=== PATIENT | male | born 2000 | race Caucasian/White ===

== ENCOUNTER 2018-11-06 13:46 | Emergency (ER) | payer OTHER ==
[2018-11-06 13:51] VITALS: RESP 18; TEMP 98.2
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
[2018-11-06 19:11] VITALS: BP 114/72; PULSE 87
== END 2018-11-06 19:10 | disposition home or self-care (01) ==
LOC: EC 13:46
DX: F32.9 Major depressive disorder, single episode, unspecified (principal)
CPT/HCPCS: 99285

== ENCOUNTER 2021-07-02 21:50 | Emergency (ER) | payer OTHER ==
--- NOTE | 2021-07-02 23:23 | ED ---
Abdominal Pain HPI <Elizabeth Hartman - Last Filed: 07/03/21 02:40> - General Source: RN notes reviewed, old records reviewed - History of Present Illness MD Complaint: abdominal pain, other (Nausea and vomiting) -: days(s) Location: periumbilical, LUQ, RUQ, L flank, R flank Radiation: back Migration to: LUQ, RUQ Severity: moderate Severity scale (1-10): 4 Quality: cramping, stabbing Consistency: intermittent Improves With: nothing Worsens With: vomiting Associated Symptoms: nausea, vomiting Treatments Prior to Arrival: other (none) <Tony Taylor - Last Filed: 07/03/21 06:00> <Leobardo Gilbert - Last Filed: 07/03/21 09:03> - General Stated Complaint: ABDOMINAL PAIN Time Seen by Provider: 07/02/21 23:19 - History of Present Illness Initial Comments: Seen for ATP purposes: 20 year-old male patient presents to the emergency d [facility] for evaluation of abdominal pain. States it is in the left lateral abdomen. Symptoms started about 5 days ago. States he has been vomiting blood. States he was initially having coffee grounds then turned to bright red last night. No vomiting today. Denies any fever or chills. States it hurts to move. Denies difficulty with urination. Denies diarrhea. Denies hematochezia or melena. (Elizabeth Hartman) This is a 20-year-old male to emergency department for evaluation abdominal pain. She has midepigastric upper abdominal pain goes left-sided goes tobacco a right side. No fevers. No travel history, no sick contacts possible nausea history of vomiting blood which she thinks was blood last night. No vomiting today. Symptoms are worsening. Patient states he feels very dehydrated. (Tony Taylor) - Related Data Home Medications Medication Instructions Recorded Confirmed Multivitamin,Therapeutic [Thera] 1 tab PO DAILY 11/06/18 11/06/18 Previous Rx's Medication Instructions Recorded Ondansetron Odt [Zofran Odt] 4 mg PO Q8HR PRN #10 tab 07/03/21 Allergies Allergy/AdvReac Type Severity Reaction Status Date / Time No Known Allergies Allergy Verified 07/02/21 23:26 Review of Systems ROS Other: All systems not noted in ROS Statement are negative. <Elizabeth Hartman - Last Filed: 07/03/21 02:40> ROS Other: All systems not noted in ROS Statement are negative. <Tony Taylor - Last Filed: 07/03/21 06:00> ROS Other: All systems not noted in ROS Statement are negative. <Leobardo Gilbert - Last Filed: 07/03/21 09:03> ROS Statement: Those systems with pertinent positive or pertinent negative responses have been documented in the HPI. Past Medical History Past Medical History: Asthma History of Any Multi-Drug Resistant Organisms: None Reported Past Surgical History: No Surgical Hx Reported Past Psychological History: Depression Past Alcohol Use History: None Reported Past Drug Use History: None Reported <Elizabeth Hartman - Last Filed: 07/03/21 02:40> General Exam General appearance: alert, in no apparent distress Head exam: Present: atraumatic, normocephalic, normal inspection Eye exam: Present: normal appearance, PERRL, EOMI. Absent: scleral icterus, con junctival injection, periorbital swelling ENT exam: Present: normal exam, mucous membranes moist Neck exam: Present: normal inspection. Absent: tenderness, meningismus, lymphadenopathy Respiratory exam: Present: normal lung sounds bilaterally. Absent: respiratory distress, wheezes, rales, rhonchi, stridor Cardiovascular Exam: Present: regular rate, normal rhythm, normal heart sounds. Absent: systolic murmur, diastolic murmur, rubs, gallop, clicks GI/Abdominal exam: Present: soft, normal bowel sounds. Absent: distended, tenderness, guarding, rebound, rigid Extremities exam: Present: normal inspection, full ROM, normal capillary refill. Absent: tenderness, pedal edema, joint swelling, calf tenderness Back exam: Present: normal inspection Neurological exam: Present: alert, oriented X3, CN II-XII intact Psychiatric exam: Present: normal affect, normal mood Skin exam: Present: warm, dry, intact, normal color. Absent: rash <Tony Taylor - Last Filed: 07/03/21 06:00> Course <Tony Taylor - Last Filed: 07/03/21 06:00> Vital Signs 11/28/21 11/29/21 23:21 06:17 Temperature 98.3 F Pulse Rate 119 H 71 Respiratory 18 20 Rate Blood Pressure 123/86 127/76 O2 Sat by Pulse 98 99 Oximetry - Reevaluation(s) Reevaluation #1: 07/03/21 06:01 Medical record is reviewed (Tony Taylor) Reevaluation #2: 07/03/21 06:01 Patient symptoms are improving (Tony Taylor) Medical Decision Making - Lab Data Result diagrams: 07/03/21 00:20 07/03/21 00:20 <Elizabeth Hartman - Last Filed: 07/03/21 02:40> - Lab Data Result diagrams: 07/03/21 03:32 07/03/21 00:20 <Tony Taylor - Last Filed: 07/03/21 06:00> - Lab Data Result diagrams: 07/03/21 03:32 07/03/21 00:20 - Radiology Data Radiology results: report reviewed (Ultrasound gallbladder shows hepatomegaly. CT abdomen and pelvis shows no acute changes. Fatty infiltrated liver.) <Leobardo Gilbert - Last Filed: 07/03/21 09:03> - Medical Decision Making Patient endorsed to me for probable discharge following ultrasound. Patient reevaluated by myself, Dr. Gilbert. Patient resting comfortably in bed and feeling better. Abdomen soft and nontender. Patient states he did vomit one to 3 times over the past few days. Patient questioned if he had some blood in the last episode. Patient did have repeat blood work or stable hemoglobin. Patient updated on results and need for follow-up. Patient is comfortable with discharge at this time. Patient states he is on prescription antacid for his stomach. (Leobardo Gilbert) - Lab Data Lab Results 07/03/21 07/03/21 07/03/21 Range/Units 00:20 00:20 00:20 WBC 12.9 H (3.8-10.6) k/uL RBC 5.28 (4.30-5.90) m/uL Hgb 14.7 (13.0-17.5) gm/dL Hct 44.5 (39.0-53.0) % MCV 84.2 (80.0-100.0) fL MCH 27.9 (25.0-35.0) pg MCHC 33.1 (31.0-37.0) g/dL RDW 14.6 (11.5-15.5) % Plt Count 405 (150-450) k/uL MPV 7.0 Neutrophils % 68 % Lymphocytes % 21 % Monocytes % 6 % Eosinophils % 3 % Basophils % 0 % Neutrophils # 8.8 H (1.3-7.7) k/uL Lymphocytes # 2.7 (1.0-4.8) k/uL Monocytes # 0.8 (0-1.0) k/uL Eosinophils # 0.4 (0-0.7) k/uL Basophils # 0.1 (0-0.2) k/uL Sodium 136 L (137-145) mmol/L Potassium 4.2 (3.5-5.1) mmol/L Chloride 102 (98-107) mmol/L Carbon Dioxide 22 (22-30) mmol/L Anion Gap 12 mmol/L BUN 10 (9-20) mg/dL Creatinine 0.88 (0.66-1.25) mg/dL Est GFR (CKD-EPI)AfAm >90 (>60 ml/min/1.73 sqM) Est GFR (CKD-EPI)NonAf >90 (>60 ml/min/1.73 sqM) Glucose 115 H (74-99) mg/dL Plasma Lactic Acid Neto 1.5 (0.7-2.0) mmol/L Calcium 10.1 (8.4-10.2) mg/dL Magnesium (1.6-2.3) mg/dL Total Bilirubin 0.4 (0.2-1.3) mg/dL AST 42 (17-59) U/L ALT 61 H (4-49) U/L Alkaline Phosphatase 162 H (38-126) U/L Total Protein 8.5 H (6.3-8.2) g/dL Albumin 4.4 (3.5-5.0) g/dL Lipase 97 (23-300) U/L Urine Color Urine Appearance (Clear) Urine pH (5.0-8.0) Ur Specific Atwood (1.001-1.035) Urine Protein (Negative) Urine Glucose (UA) (Negative) Urine Ketones (Negative) Urine Blood (Negative) Urine Nitrite (Negative) Urine Bilirubin (Negative) Urine Urobilinogen (<2.0) mg/dL Ur Leukocyte Esterase (Negative) Urine RBC (0-5) /hpf Urine WBC (0-5) /hpf Ur Squamous Epith Cells (0-4) /hpf Urine Bacteria (None) /hpf Hyaline Casts (0-2) /lpf Urine Mucus (None) /hpf Serum Alcohol mg/dL Coronavirus (PCR) (Not Detectd) 07/03/21 07/03/21 07/03/21 Range/Units 01:44 03:32 03:32 WBC 12.7 H (3.8-10.6) k/uL RBC 5.09 (4.30-5.90) m/uL Hgb 14.6 (13.0-17.5) gm/dL Hct 42.8 (39.0-53.0) % MCV 84.2 (80.0-100.0) fL MCH 28.6 (25.0-35.0) pg MCHC 34.0 (31.0-37.0) g/dL RDW 14.6 (11.5-15.5) % Plt Count 431 (150-450) k/uL MPV 6.9 Neutrophils % 67 % Lymphocytes % 21 % Monocytes % 7 % Eosinophils % 3 % Basophils % 0 % Neutrophils # 8.4 H (1.3-7.7) k/uL Lymphocytes # 2.7 (1.0-4.8) k/uL Monocytes # 0.8 (0-1.0) k/uL Eosinophils # 0.4 (0-0.7) k/uL Basophils # 0.0 (0-0.2) k/uL Sodium (137-145) mmol/L Potassium (3.5-5.1) mmol/L Chloride (98-107) mmol/L Carbon Dioxide (22-30) mmol/L Anion Gap mmol/L BUN (9-20) mg/dL Creatinine (0.66-1.25) mg/dL Est GFR (CKD-EPI)AfAm (>60 ml/min/1.73 sqM) Est GFR (CKD-EPI)NonAf (>60 ml/min/1.73 sqM) Glucose (74-99) mg/dL Plasma Lactic Acid Neto (0.7-2.0) mmol/L Calcium (8.4-10.2) mg/dL Magnesium 2.1 (1.6-2.3) mg/dL Total Bilirubin (0.2-1.3) mg/dL AST (17-59) U/L ALT (4-49) U/L Alkaline Phosphatase (38-126) U/L Total Protein (6.3-8.2) g/dL Albumin (3.5-5.0) g/dL Lipase (23-300) U/L Urine Color Yellow Urine Appearance Cloudy (Clear) Urine pH 5.5 (5.0-8.0) Ur Specific Atwood 1.028 (1.001-1.035) Urine Protein Trace H (Negative) Urine Glucose (UA) Negative (Negative) Urine Ketones Negative (Negative) Urine Blood Small H (Negative) Urine Nitrite Negative (Negative) Urine Bilirubin Negative (Negative) Urine Urobilinogen <2.0 (<2.0) mg/dL Ur Leukocyte Esterase Negative (Negative) Urine RBC 21 H (0-5) /hpf Urine WBC 7 H (0-5) /hpf Ur Squamous Epith Cells 1 (0-4) /hpf Urine Bacteria Rare H (None) /hpf Hyaline Casts 13 H (0-2) /lpf Urine Mucus Many H (None) /hpf Serum Alcohol <10 mg/dL Coronavirus (PCR) (Not Detectd) 07/03/21 Range/Units 03:32 WBC (3.8-10.6) k/uL RBC (4.30-5.90) m/uL Hgb (13.0-17.5) gm/dL Hct (39.0-53.0) % MCV (80.0-100.0) fL MCH (25.0-35.0) pg MCHC (31.0-37.0) g/dL RDW (11.5-15.5) % Plt Count (150-450) k/uL MPV Neutrophils % % Lymphocytes % % Monocytes % % Eosinophils % % Basophils % % Neutrophils # (1.3-7.7) k/uL Lymphocytes # (1.0-4.8) k/uL Monocytes # (0-1.0) k/uL Eosinophils # (0-0.7) k/uL Basophils # (0-0.2) k/uL Sodium (137-145) mmol/L Potassium (3.5-5.1) mmol/L Chloride (98-107) mmol/L Carbon Dioxide (22-30) mmol/L Anion Gap mmol/L BUN (9-20) mg/dL Creatinine (0.66-1.25) mg/dL Est GFR (CKD-EPI)AfAm (>60 ml/min/1.73 sqM) Est GFR (CKD-EPI)NonAf (>60 ml/min/1.73 sqM) Glucose (74-99) mg/dL Plasma Lactic Acid Neto (0.7-2.0) mmol/L Calcium (8.4-10.2) mg/dL Magnesium (1.6-2.3) mg/dL Total Bilirubin (0.2-1.3) mg/dL AST (17-59) U/L ALT (4-49) U/L Alkaline Phosphatase (38-126) U/L Total Protein (6.3-8.2) g/dL Albumin (3.5-5.0) g/dL Lipase (23-300) U/L Urine Color Urine Appearance (Clear) Urine pH (5.0-8.0) Ur Specific Atwood (1.001-1.035) Urine Protein (Negative) Urine Glucose (UA) (Negative) Urine Ketones (Negative) Urine Blood (Negative) Urine Nitrite (Negative) Urine Bilirubin (Negative) Urine Urobilinogen (<2.0) mg/dL Ur Leukocyte Esterase (Negative) Urine RBC (0-5) /hpf Urine WBC (0-5) /hpf Ur Squamous Epith Cells (0-4) /hpf Urine Bacteria (None) /hpf Hyaline Casts (0-2) /lpf Urine Mucus (None) /hpf Serum Alcohol mg/dL Coronavirus (PCR) Not Detected (Not Detectd) Disposition <Elizabeth Hartman - Last Filed: 07/03/21 02:40> <Tony Taylor - Last Filed: 07/03/21 06:00> Is patient prescribed a controlled substance at d/c from ED?: No Time of Disposition: 09:02 <Leobardo Gilbert - Last Filed: 07/03/21 09:03> Clinical Impression: Abdominal pain, Vomiting Disposition: HOME SELF-CARE Condition: Stable Instructions (If sedation given, give patient instructions): Abdominal Pain (ED) Additional Instructions: Please follow-up with your primary care physician in the next day or 2 for recheck. Return for increased pain, fevers, vomiting blood, increased vomiting, worsening symptoms or any other concerns. Prescription for nausea medication has been sent to your pharmacy. Prescriptions: Ondansetron Odt [Zofran Odt] 4 mg PO Q8HR PRN #10 tab PRN Reason: Nausea Referrals: Tadeo Luu MD [STAFF PHYSICIAN] - 1-2 days
--- NOTE | 2021-07-03 00:02 | CT ---
EXAMINATION TYPE: CT abdomen pelvis wo con DATE OF EXAM: 07/02/2021 COMPARISON: None HISTORY: LUQ PAIN CT DLP: 2060 mGycm Automated exposure control for dose reduction was used. Images obtained from the diaphragm to the floor the pelvis with no contrast. Lung bases are clear of infiltrate. There is no pleural effusion. Heart size is normal. There is no p ericardial effusion. There is fatty infiltration of the liver. The bile ducts are not dilated. Gallbladder is contracted. Spleen is intact. Stomach is intact. There is no pancreatic mass. There is no adrenal mass. Kidneys show satisfactory contrast opacification. There is no hydronephrosi s. Ureters are not dilated. There is no retroperitoneal adenopathy. There is no inguinal hernia. Ther e is no free fluid in the pelvis. There is no evidence of a pelvic mass. Lumbar vertebra have normal alignment. Posterior elements are intact. There is no compression fracture. Appendix not well seen. N o sign of thickened appendix. There is no mesenteric edema. There is no ascites or free air. There is no bowel obstruction. IMPRESSION: There is some fatty infiltration of the liver. No sign of acute abdomen and pelvis.
[2021-07-03 00:53] LABS: ALT 61 U/L (4-49); AST 42 U/L (17-59); African American GFR (CKD) >90 (>60 ml/min/1.73 sqM); Albumin 4.4 g/dL (3.5-5.0); Alkaline Phosphatase 162 U/L (38-126); Anion Gap 12 mmol/L; Blood Urea Nitrogen 10 mg/dL (9-20); Calcium 10.1 mg/dL (8.4-10.2); Carbon Dioxide 22 mmol/L (22-30); Chloride 102 mmol/L (98-107); Glucose 115 mg/dL (74-99); Lipase 97 U/L (23-300); Non-African American GFR(CKD) >90 (>60 ml/min/1.73 sqM); Potassium 4.2 mmol/L (3.5-5.1); Sodium 136 mmol/L (137-145); Total Bilirubin 0.4 mg/dL (0.2-1.3); Total Protein 8.5 g/dL (6.3-8.2)
[2021-07-03 01:03] LABS: Basophils # (A) 0.1 k/uL (0-0.2); Basophils % (A) 0 %; Eosinophils # (A) 0.4 k/uL (0-0.7); Eosinophils % (A) 3 %; HCT 44.5 % (39.0-53.0); HGB 14.7 gm/dL (13.0-17.5); Lymphocytes # (A) 2.7 k/uL (1.0-4.8); Lymphocytes % (A) 21 %; MCH 27.9 pg (25.0-35.0); MCHC 33.1 g/dL (31.0-37.0); MCV 84.2 fL (80.0-100.0); Monocytes # (A) 0.8 k/uL (0-1.0); Monocytes % (A) 6 %; Neutrophils # (A) 8.8 k/uL (1.3-7.7); Neutrophils % (A) 68 %; Platelet Count 405 k/uL (150-450); RBC 5.28 m/uL (4.30-5.90); RDW 14.6 % (11.5-15.5); WBC 12.9 k/uL (3.8-10.6)
[2021-07-03 02:14] LABS: Appearance,Urine Cloudy (Clear); Bacteria,Urine Rare /hpf; Bilirubin,Urine Negative (Negative); Blood,Urine Small (Negative); Color,Urine Yellow; Glucose,Urine (UA) Negative (Negative); Hyaline Casts,Urine 13 /lpf (0-2); Ketones,Urine Negative (Negative); Leukocyte Esterase,Urine Negative (Negative); Mucus,Urine Many /hpf; Nitrite,Urine Negative (Negative); PH, Urine 5.5 (5.0-8.0); Protein,Urine Trace (Negative); RBC,Urine 21 /hpf (0-5); Specific Gravity,Urine 1.028 (1.001-1.035); Squamous Epithelial Cell,Urine 1 /hpf (0-4); Urobilinogen,Urine <2.0 mg/dL (<2.0); WBC,Urine 7 /hpf (0-5)
[2021-07-03] MEDS ORDERED: ONDANSETRON 4 MG/2 ML VIAL IVP STA (03:14)
[2021-07-03] MEDS ORDERED: SODIUM CHLORIDE 0.9% 1,000 ML IV STA ×2 (03:14)
[2021-07-03] MEDS ORDERED: KETOROLAC 30 MG/ML 1 ML VIAL IVP STA (03:14)
[2021-07-03] MEDS ORDERED: MORPHINE SULFATE 4 MG/ML SYRINGE IV STA (03:14)
[2021-07-03] MEDS ORDERED: SODIUM CHLORIDE 0.9% 500 ML 500 ML IV STA (03:14)
[2021-07-03 04:04] LABS: Basophils % (A) 0 %; Eosinophils # (A) 0.4 k/uL (0-0.7); Eosinophils % (A) 3 %; HCT 42.8 % (39.0-53.0); HGB 14.6 gm/dL (13.0-17.5); Lymphocytes # (A) 2.7 k/uL (1.0-4.8); Lymphocytes % (A) 21 %; MCH 28.6 pg (25.0-35.0); MCV 84.2 fL (80.0-100.0); Mean Platelet Volume 6.9; Monocytes # (A) 0.8 k/uL (0-1.0); Monocytes % (A) 7 %; Neutrophils # (A) 8.4 k/uL (1.3-7.7); Neutrophils % (A) 67 %; Platelet Count 431 k/uL (150-450); RBC 5.09 m/uL (4.30-5.90); RDW 14.6 % (11.5-15.5); WBC 12.7 k/uL (3.8-10.6)
[2021-07-03 04:19] LABS: Alcohol <10 mg/dL; Magnesium 2.1 mg/dL (1.6-2.3)
--- NOTE | 2021-07-03 08:35 | US ---
EXAMINATION TYPE: US gallbladder DATE OF EXAM: 07/03/2021 COMPARISON: NONE CLINICAL HISTORY: pain. Pain with nausea and vomitting EXAM MEASUREMENTS: Liver Length: 18.0 cm Gallbladder Wall: 0.2 cm CBD: 0.4 cm Right Kidney: 12.5 x 6.8 x 4.6 cm Pancreas: Obscured by bowel gas Liver: Increased attenuation, decreased visualization of vessels suggestive of fatty infiltrate Gallbladder: No stones seen Evidence for sonographic Vaughan's sign: No CBD: wnl Right Kidney: No hydronephrosis or masses seen Limited exam due to patient body habitus IMPRESSION: 1. Hepatomegaly
[2021-07-03 09:25] VITALS: BP 134/79; PULSE 84; RESP 16; TEMP 98.4
== END 2021-07-03 09:21 | disposition home or self-care (01) ==
LOC: EC 21:50
DX: R10.33 Periumbilical pain (principal); R10.11 Right upper quadrant pain; R10.12 Left upper quadrant pain; R11.2 Nausea with vomiting, unspecified; J45.909 Unspecified asthma, uncomplicated; Z20.822 Contact with and (suspected) exposure to COVID-19
CPT/HCPCS: 36415; 80053; 83605; 83690; 83735; 85025; 81001; 87635; 76705; 74176; 99285; 96374; 96375; 96361; G0480; J2270; J2405; J1885; 80320

== ENCOUNTER 2021-10-30 18:26 | Emergency (ER) | payer OTHER ==
--- NOTE | 2021-10-30 20:03 | ED ---
Psych HPI - General Source: patient, EMS Mode of arrival: EMS <Adin Mcdermott - Last Filed: 10/30/21 20:00> <Tony Taylor - Last Filed: 10/31/21 00:08> - General Chief Complaint: Psychiatric Symptoms Stated Complaint: EPS Eval Time Seen by Provider: 10/30/21 18:34 - History of Present Illness Initial Comments: This 20-year-old male presents with the complaint of some depression. This apparently has been worse recently. He states that he has a long standing history of depression and takes medications for this. He apparently cut his left forearm today with multiple superficial abrasions present. He also relates a history of schizoaffective disorder and posttraumatic stress disorder. He does state that he has auditory and visual hallucinations on a regular basis, daily. He denies any current medical issues. He denies any drug use. No other complaints or modifying factors. (Adin Mcdermott) - Related Data Home Medications Medication Instructions Recorded Confirmed Sertraline [Zoloft] 50 mg PO HS 10/30/21 10/30/21 Sulfamethoxazole/Trimethoprim 1 tab PO BID 10/30/21 10/30/21 [Bactrim DS 800-160 mg] Allergies Allergy/AdvReac Type Severity Reaction Status Date / Time No Known Allergies Allergy Verified 10/30/21 21:27 Review of Systems ROS Other: All systems not noted in ROS Statement are negative. <Adin Mcdermott - Last Filed: 10/30/21 20:00> ROS Other: All systems not noted in ROS Statement are negative. <Tony Taylor - Last Filed: 10/31/21 00:08> ROS Statement: Those systems with pertinent positive or pertinent negative responses have been documented in the HPI. Past Medical History Past Medical History: Asthma History of Any Multi-Drug Resistant Organisms: None Reported Past Surgical History: No Surgical Hx Reported Past Psychological History: Depression, PTSD, Schizoaffective Disorder Smoking Status: Never smoker Past Alcohol Use History: Rare Past Drug Use History: None Reported <Adin Mcdermott - Last Filed: 10/30/21 20:00> General Exam <Adin Mcdermott - Last Filed: 10/30/21 20:00> - General Exam Comments Initial Comments: GENERAL: The patient is well nourished and well hydrated. VITAL SIGNS: Heart rate, blood pressure, respiratory rate reviewed as recorded in nurse's notes. EYES: Pupils are round and reactive. Extraocular movements are intact. No conjunctival / lid redness or swelling. ENT: No external evidence of injury, swelling, or ecchymosis. Airway is patent. Throat is clear. NECK: Nontender. No swelling or evidence of injury. No subcutaneous emphysema. Trachea is midline. No thyroid mass. HEART: Regular rate and rhythm. Good peripheral pulses. LUNGS/CHEST: Breath sounds clear and equal bilaterally. No rales, rhonchi, or wheezes. No ecchymosis, subcutaneous emphysema, or tenderness. ABDOMEN: Abdomen soft without tenderness. No palpable masses or organomegaly. No peritoneal signs. No abdominal wall swelling or ecchymosis. EXTREMITIES: No extremity tenderness. Normal muscle tone and function. No thoracolumbar tenderness. NEUROLOGIC: Sensation is grossly intact. Cranial nerve exam reveals face is symmetrical, tongue is midline, speech is clear. SKIN: Multiple superficial abrasions noted to the left forearm. No induration or masses noted. PSYCHIATRIC: Alert and oriented. Appropriate behavior and judgment. No overt psychosis or significant depression noted. (Adin Mcdermott) Course <Tony Taylor - Last Filed: 10/31/21 00:08> Vital Signs 10/30/21 18:30 Temperature 98.7 F Pulse Rate 107 H Respiratory 18 Rate Blood Pressure 143/90 O2 Sat by Pulse 96 Oximetry - Reevaluation(s) Reevaluation #1: 10/31/21 00:08 Medical records reviewed 10/31/21 00:08 Medical clear for psychiatric evaluation (Tony Taylor) Medical Decision Making <Adin Mcdermott - Last Filed: 10/30/21 20:00> <Tony Taylor - Last Filed: 10/31/21 00:08> - Medical Decision Making The patient was seen and examined. His abrasions on his left forearm appear to be very minimal. The breath alcohol test is completed. It is felt as though the patient is stable for further psychiatric evaluation. He is medically cleared. Consult is placed for psychiatric evaluation. (Adin Mcdermott) 21 male to the emergency department for evaluation. Patient here for psychiatric evaluation today, patient deemed stable for discharge home (Tony Taylor) Disposition <Adin Mcdermott - Last Filed: 10/30/21 20:00> Is patient prescribed a controlled substance at d/c from ED?: No <Tony Taylor - Last Filed: 10/31/21 00:08> Clinical Impression: Schizoaffective disorder, Major depression, History of posttraumatic stress disorder (PTSD), Self-mutilation, Abrasion forearm Disposition: HOME SELF-CARE Condition: Fair Instructions (If sedation given, give patient instructions): Depression (ED) Referrals: Juanito Brady Jr, DO [Primary Care Provider] - 1-2 days
[2021-10-31 00:10] VITALS: BP 134/84; PULSE 79; RESP 24; TEMP 98
[2021-10-31 00:19] LABS: Amphetamine Screen,Urine Not Detected (NotDetected); Barbiturate Screen,Urine Not Detected (NotDetected); Benzodiazepines Screen,Urine Detected (NotDetected); Cocaine Screen,Urine Not Detected (NotDetected); Methadone Screen, Urine Not Detected (NotDetected); Opiate Screen,Urine Not Detected (NotDetected); Oxycodone Screen, Urine Not Detected (NotDetected); Phencyclidine Screen,Urine Not Detected (NotDetected); Tricyclic Antidepressant,Urine Not Detected (NotDetected); Urn Cannabinoid Scrn Not Detected (NotDetected)
== END 2021-10-31 00:12 | disposition home or self-care (01) ==
LOC: EC 18:26
DX: F25.9 Schizoaffective disorder, unspecified (principal); F32.9 Major depressive disorder, single episode, unspecified; F43.10 Post-traumatic stress disorder, unspecified; J45.909 Unspecified asthma, uncomplicated
CPT/HCPCS: 80306; 82075; 99285

== ENCOUNTER 2021-11-23 17:17 | Inpatient (IN) | payer MEDICAID, OTHER ==
[2021-11-23 17:46] VITALS: RESP 16
--- NOTE | 2021-11-23 19:27 | ED ---
Psych HPI - General Chief Complaint: Psychiatric Symptoms Stated Complaint: Mental health eval Time Seen by Provider: 11/23/21 18:30 Source: patient Mode of arrival: ambulatory - History of Present Illness Initial Comments: 21-year-old male history depression who presents with complaints of feeling depressed more than usual for past 3 days with suicidal thoughts and ideation bu t no particular plan. He states he's having difficulty remembering things. No trauma no fevers chills nausea vomiting sweats he has no complaints at this time he denies alcohol or drugs. MD Complaint: feels depressed - Related Data Home Medications Medication Instructions Recorded Confirmed Omeprazole 20 mg PO DAILY 11/23/21 11/23/21 QUEtiapine [SEROquel] 50 mg PO HS 11/23/21 11/23/21 Allergies Allergy/AdvReac Type Severity Reaction Status Date / Time No Known Allergies Allergy Verified 11/23/21 19:36 Review of Systems ROS Statement: Those systems with pertinent positive or pertinent negative responses have been documented in the HPI. ROS Other: All systems not noted in ROS Statement are negative. Past Medical History Past Medical History: Asthma History of Any Multi-Drug Resistant Organisms: None Reported Past Surgical History: No Surgical Hx Reported Past Psychological History: Depression, PTSD, Schizoaffective Disorder Smoking Status: Never smoker Past Alcohol Use History: Rare Past Drug Use History: None Reported General Exam - General Exam Comments Initial Comments: This is a well-developed well-nourished awake alert oriented 3 male Limitations: no limitations General appearance: alert, in no apparent distress Head exam: Present: atraumatic, normocephalic, normal inspection Eye exam: Present: normal appearance, PERRL, EOMI. Absent: scleral icterus, conjunctival injection, periorbital swelling ENT exam: Present: normal exam, mucous membranes moist Neck exam: Present: normal inspection. Absent: tenderness, meningismus, lymphadenopathy Respiratory exam: Present: normal lung sounds bilaterally. Absent: respiratory distress, wheezes, rales, rhonchi, stridor Cardiovascular Exam: Present: regular rate, normal rhythm, normal heart sounds. Absent: systolic murmur, diastolic murmur, rubs, gallop, clicks GI/Abdominal exam: Present: soft, normal bowel sounds. Absent: distended, tenderness, guarding, rebound, rigid Extremities exam: Present: normal inspection, full ROM, normal capillary refill. Absent: tenderness, pedal edema, joint swelling, calf tenderness Back exam: Present: normal inspection Neurological exam: Present: alert, oriented X3, CN II-XII intact Psychiatric exam: Present: depressed, flat affect, suicidal ideation Skin exam: Present: warm, dry, intact, normal color. Absent: rash Course Vital Signs 11/23/21 17:41 Temperature 98.7 F Pulse Rate 66 Respiratory 16 Rate Blood Pressure 129/81 O2 Sat by Pulse 98 Oximetry Medical Decision Making - Medical Decision Making The patient was evaluated by the psychiatric service labs and CAT scan were ordered all appear to be within reasonable normal limits. Patient be admitted for inpatient evaluation and treatment. - Lab Data Result diagrams: 11/23/21 20:39 11/23/21 20:39 Lab Results 11/23/21 11/23/21 11/23/21 Range/Units 18:39 20:39 20:39 WBC 10.2 (3.8-10.6) k/uL RBC 5.35 (4.30-5.90) m/uL Hgb 15.3 (13.0-17.5) gm/dL Hct 46.5 (39.0-53.0) % MCV 87.0 (80.0-100.0) fL MCH 28.6 (25.0-35.0) pg MCHC 32.9 (31.0-37.0) g/dL RDW 15.0 (11.5-15.5) % Plt Count 475 H (150-450) k/uL MPV 7.0 Neutrophils % 64 % Lymphocytes % 27 % Monocytes % 4 % Eosinophils % 2 % Basophils % 1 % Neutrophils # 6.6 (1.3-7.7) k/uL Lymphocytes # 2.8 (1.0-4.8) k/uL Monocytes # 0.4 (0-1.0) k/uL Eosinophils # 0.2 (0-0.7) k/uL Basophils # 0.1 (0-0.2) k/uL Sodium 139 (137-145) mmol/L Potassium 4.4 (3.5-5.1) mmol/L Chloride 104 (98-107) mmol/L Carbon Dioxide 25 (22-30) mmol/L Anion Gap 10 mmol/L BUN 9 (9-20) mg/dL Creatinine 0.71 (0.66-1.25) mg/dL Est GFR (CKD-EPI)AfAm >90 (>60 ml/min/1.73 sqM) Est GFR (CKD-EPI)NonAf >90 (>60 ml/min/1.73 sqM) Glucose 90 (74-99) mg/dL Calcium 9.7 (8.4-10.2) mg/dL Total Bilirubin 0.6 (0.2-1.3) mg/dL AST 24 (17-59) U/L ALT 35 (4-49) U/L Alkaline Phosphatase 125 (38-126) U/L Total Protein 8.2 (6.3-8.2) g/dL Albumin 4.3 (3.5-5.0) g/dL Urine Color Yellow Urine Appearance Clear (Clear) Urine pH 6.0 (5.0-8.0) Ur Specific Leonidas 1.026 (1.001-1.035) Urine Protein Trace H (Negative) Urine Glucose (UA) Negative (Negative) Urine Ketones Negative (Negative) Urine Blood Negative (Negative) Urine Nitrite Negative (Negative) Urine Bilirubin Negative (Negative) Urine Urobilinogen 2.0 (<2.0) mg/dL Ur Leukocyte Esterase Negative (Negative) Urine Opiates Screen Not Detected (NotDetected) Ur Oxycodone Screen Not Detected (NotDetected) Urine Methadone Screen Not Detected (NotDetected) Ur Propoxyphene Screen Not Detected (NotDetected) Ur Barbiturates Screen Not Detected (NotDetected) U Tricyclic Antidepress Detected H (NotDetected) Ur Phencyclidine Scrn Not Detected (NotDetected) Ur Amphetamines Screen Not Detected (NotDetected) U Methamphetamines Scrn Not Detected (NotDetected) U Benzodiazepines Scrn Not Detected (NotDetected) Urine Cocaine Screen Not Detected (NotDetected) U Marijuana (THC) Screen Not Detected (NotDetected) Coronavirus (PCR) (Not Detectd) 11/23/21 Range/Units 20:39 WBC (3.8-10.6) k/uL RBC (4.30-5.90) m/uL Hgb (13.0-17.5) gm/dL Hct (39.0-53.0) % MCV (80.0-100.0) fL MCH (25.0-35.0) pg MCHC (31.0-37.0) g/dL RDW (11.5-15.5) % Plt Count (150-450) k/uL MPV Neutrophils % % Lymphocytes % % Monocytes % % Eosinophils % % Basophils % % Neutrophils # (1.3-7.7) k/uL Lymphocytes # (1.0-4.8) k/uL Monocytes # (0-1.0) k/uL Eosinophils # (0-0.7) k/uL Basophils # (0-0.2) k/uL Sodium (137-145) mmol/L Potassium (3.5-5.1) mmol/L Chloride (98-107) mmol/L Carbon Dioxide (22-30) mmol/L Anion Gap mmol/L BUN (9-20) mg/dL Creatinine (0.66-1.25) mg/dL Est GFR (CKD-EPI)AfAm (>60 ml/min/1.73 sqM) Est GFR (CKD-EPI)NonAf (>60 ml/min/1.73 sqM) Glucose (74-99) mg/dL Calcium (8.4-10.2) mg/dL Total Bilirubin (0.2-1.3) mg/dL AST (17-59) U/L ALT (4-49) U/L Alkaline Phosphatase (38-126) U/L Total Protein (6.3-8.2) g/dL Albumin (3.5-5.0) g/dL Urine Color Urine Appearance (Clear) Urine pH (5.0-8.0) Ur Specific Leonidas (1.001-1.035) Urine Protein (Negative) Urine Glucose (UA) (Negative) Urine Ketones (Negative) Urine Blood (Negative) Urine Nitrite (Negative) Urine Bilirubin (Negative) Urine Urobilinogen (<2.0) mg/dL Ur Leukocyte Esterase (Negative) Urine Opiates Screen (NotDetected) Ur Oxycodone Screen (NotDetected) Urine Methadone Screen (NotDetected) Ur Propoxyphene Screen (NotDetected) Ur Barbiturates Screen (NotDetected) U Tricyclic Antidepress (NotDetected) Ur Phencyclidine Scrn (NotDetected) Ur Amphetamines Screen (NotDetected) U Methamphetamines Scrn (NotDetected) U Benzodiazepines Scrn (NotDetected) Urine Cocaine Screen (NotDetected) U Marijuana (THC) Screen (NotDetected) Coronavirus (PCR) Not Detected (Not Detectd) - Radiology Data Radiology results: report reviewed (CT negative for acute processes.), image reviewed Disposition Clinical Impression: Depression, Suicidal ideation Disposition: TRANSFER TO PSYCH HOSP/UNIT Condition: Stable Referrals: Juanito Brady Jr, DO [Primary Care Provider] - 1-2 days Decision Date: 11/23/21 Decision Time: 21:46
[2021-11-23 19:48] LABS: Appearance,Urine Clear (Clear); Bilirubin,Urine Negative (Negative); Blood,Urine Negative (Negative); Color,Urine Yellow; Glucose,Urine (UA) Negative (Negative); Ketones,Urine Negative (Negative); Leukocyte Esterase,Urine Negative (Negative); Nitrite,Urine Negative (Negative); Protein,Urine Trace (Negative); Specific Gravity,Urine 1.026 (1.001-1.035)
[2021-11-23 19:58] LABS: Amphetamine Screen,Urine Not Detected (NotDetected); Barbiturate Screen,Urine Not Detected (NotDetected); Benzodiazepines Screen,Urine Not Detected (NotDetected); Cocaine Screen,Urine Not Detected (NotDetected); Methadone Screen, Urine Not Detected (NotDetected); Opiate Screen,Urine Not Detected (NotDetected); Oxycodone Screen, Urine Not Detected (NotDetected); Phencyclidine Screen,Urine Not Detected (NotDetected); Tricyclic Antidepressant,Urine Detected (NotDetected); Urn Cannabinoid Scrn Not Detected (NotDetected)
[2021-11-23 20:59] LABS: Basophils # (A) 0.1 k/uL (0-0.2); Basophils % (A) 1 %; Eosinophils # (A) 0.2 k/uL (0-0.7); Eosinophils % (A) 2 %; HCT 46.5 % (39.0-53.0); HGB 15.3 gm/dL (13.0-17.5); Lymphocytes # (A) 2.8 k/uL (1.0-4.8); Lymphocytes % (A) 27 %; MCH 28.6 pg (25.0-35.0); MCHC 32.9 g/dL (31.0-37.0); Monocytes # (A) 0.4 k/uL (0-1.0); Monocytes % (A) 4 %; Neutrophils # (A) 6.6 k/uL (1.3-7.7); Neutrophils % (A) 64 %; Platelet Count 475 k/uL (150-450); RBC 5.35 m/uL (4.30-5.90); WBC 10.2 k/uL (3.8-10.6)
[2021-11-23 21:04] LABS: ALT 35 U/L (4-49); AST 24 U/L (17-59); African American GFR (CKD) >90 (>60 ml/min/1.73 sqM); Albumin 4.3 g/dL (3.5-5.0); Alkaline Phosphatase 125 U/L (38-126); Anion Gap 10 mmol/L; Blood Urea Nitrogen 9 mg/dL (9-20); Calcium 9.7 mg/dL (8.4-10.2); Carbon Dioxide 25 mmol/L (22-30); Chloride 104 mmol/L (98-107); Glucose 90 mg/dL (74-99); Non-African American GFR(CKD) >90 (>60 ml/min/1.73 sqM); Potassium 4.4 mmol/L (3.5-5.1); Sodium 139 mmol/L (137-145); Total Bilirubin 0.6 mg/dL (0.2-1.3); Total Protein 8.2 g/dL (6.3-8.2)
[2021-11-23] MEDS ORDERED: HALOPERIDOL LACTATE 5 MG/ML 1 ML VIAL IM PRN (22:11)
[2021-11-23] MEDS ORDERED: MAGNESIUM HYDROXIDE 2,400 MG/10 ML CUP PO PRN (22:11)
[2021-11-23] MEDS ORDERED: MAG HYDROX/AL HYDROX/SIMETH 30 ML CUP PO PRN (22:11)
[2021-11-23] MEDS ORDERED: LORazepam 1 MG TAB PO PRN (22:11)
--- NOTE | 2021-11-23 22:11 | CT ---
EXAMINATION TYPE: CT brain wo con DATE OF EXAM: 11/23/2021 COMPARISON: None HISTORY: 21M BRADSHAW x [address] DLP: 1114.4 mGycm. Automated Exposure Control for Dose Reduction was Utilized. TECHNIQUE: CT scan of the head is performed without contrast. FINDINGS: There is no acute intracranial hemorrhage, mass effect, or midline shift identified. The ventricles and sulci are within normal limits in size. The globes are intact and the visualized sin uses are clear. IMPRESSION: No acute intracranial hemorrhage, mass effect, or midline shift is seen.
[2021-11-23] MEDS ORDERED: LORazepam 2 MG/ML INJ IM PRN (22:19)
[2021-11-23] MEDS ORDERED: haloperidoL 5 MG TAB PO PRN (22:19)
[2021-11-23] MEDS ORDERED: QUEtiapine 50 MG TAB PO PRN (22:20)
[2021-11-24] MEDS ORDERED: QUEtiapine 50 MG TAB PO PRN (00:03)
[2021-11-24] MEDS: PANTOPRAZOLE 40 MG TABLET PO SCH (08:29)
[2021-11-24 09:37] LABS: Chol/HDL Ratio 4.57 Ratio; LDL Cholesterol,Calculated 113.2 mg/dL (0.0-131.0)
[2021-11-24] MEDS ORDERED: SERTRALINE 50 MG TAB PO STA (12:48)
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
[2021-11-24] MEDS: TERBINAFINE 1% CREAM 15 GM TUBE TOPICAL SCH (13:35)
--- NOTE | 2021-11-24 13:42 | P.HPIM ---
History of Present Illness H&P Date: 11/24/21 Chief Complaint: Depression, suicidal This is a 21-year-old gentleman presented to the ER with complaints of worsening depression, suicidal thoughts without a plan ,in a patient with prior suicide attempts who follows with [facility]. Brain CT brain no acute intracranial hemorrhage, mass effect or midline shift.Admitted to inpatient mental health unit. Review of Systems ROS Statement: Those systems with pertinent positive or pertinent negative responses have been documented in the HPI. ROS Other: All systems not noted in ROS Statement are negative. Past Medical History Past Medical History: Asthma History of Any Multi-Drug Resistant Organisms: None Reported Past Surgical History: No Surgical Hx Reported Past Psychological History: Depression, PTSD, Schizoaffective Disorder Smoking Status: Never smoker Past Alcohol Use History: Rare Past Drug Use History: None Reported - Past Family History Father History Unknown: Yes Medications and Allergies Home Medications Medication Instructions Recorded Confirmed Type Omeprazole 20 mg PO DAILY 11/23/21 11/23/21 History QUEtiapine [SEROquel] 50 mg PO HS 11/23/21 11/23/21 History Allergies Allergy/AdvReac Type Severity Reaction Status Date / Time No Known Allergies Allergy Verified 11/23/21 23:23 Physical Exam Vitals: Vital Signs Temp Pulse Pulse Resp BP BP Pulse Ox 11/24/21 06:45 97.1 F L 93 16 105/55 11/23/21 22:26 97.7 F 106 H 16 132/74 95 11/23/21 17:41 98.7 F 66 16 129/81 98 Intake and Output 11/23/21 11/24/21 11/24/21 22:59 06:59 14:59 Other: Weight 135.034 kg PHYSICAL EXAM: VITAL SIGNS: As above GENERAL: Morbidly obese, sitting up in chair, no acute distress HEENT: Conjunctivae normal. eyes normal. NECK: No JVD. No thyroid enlargement. No LNs CARDIOVASCULAR: S1, S2 regular. No murmur RESPIRATION: Breath sounds diminished in the bases. No rhonchi or crackles. No bronchial breathing. ABDOMEN: Soft, nontender . No guarding. no masses palpable. No ascites, No hepatosplenomegaly.Bowel sounds heard. LEGS: No edema. no swelling. PSYCHIATRY: Alert and oriented X3, mood and affect normal. NERVOUS SYSTEM: Cranial N 2-12 grossly normal. Moves all 4 limbs. Diffuse weakness No focal deficits. Strength and sensation grossly intact.. Skin: Ingrown hair in groin folds.right athlete's foot Results CBC & Chem 7: 11/23/21 20:39 11/23/21 20:39 Labs: Abnormal Lab Results - Last 24 Hours (Table) 11/23/21 11/23/21 11/23/21 Range/Units 18:39 20:39 20:39 Plt Count 475 H (150-450) k/uL HDL Cholesterol 39.80 L (40.00-60.00) mg/dL Urine Protein Trace H (Negative) U Tricyclic Antidepress Detected H (NotDetected) Thrombosis Risk Factor Assmnt - Choose All That Apply Any of the Below Risk Factors Present?: Yes Each Factor Represents 1 point: Obesity (BMI >25) Other Risk Factors: No Other congenital or acquired thrombophilia - If yes, enter type in comment: No Thrombosis Risk Factor Assessment Total Risk Factor Score: 1 Thrombosis Risk Factor Assessment Level: Low Risk Assessment and Plan Assessment: Depression with suicidal ideation in a patient who verbalizes prior suicidal attempts without prior inpatient psychiatric admissions, follows with [facility]. Schizoaffective,Bipolar disorder PTSD Chronic asthma, stable Morbid obesity, BMI 42.7 Tinea pedis Foliculitis of groin folds Plan: Continue on current medication regime ,monitoring and symptomatic treatment. Topical Lamisil ordered for athlete's foot. Tylenol prn for stress headaches. Thank you for the consult, please don't hesitate to call with any further medical concerns. The impression and plan of care has been dictated as directed. : I performed a history and examination of this patient, discussed the same with the dictator. I agree with the dictator's note ,documented as a scribe. Any additional findings or plans will be noted.
[2021-11-24] MEDS: ACETAMINOPHEN TAB 325 MG TAB PO PRN (18:31)
[2021-11-24] MEDS: PRAZOSIN 1 MG CAP PO SCH (20:35)
[2021-11-25] MEDS: TERBINAFINE 1% CREAM 15 GM TUBE TOPICAL SCH (08:39)
[2021-11-25] MEDS: PANTOPRAZOLE 40 MG TABLET PO SCH (08:39)
[2021-11-25] MEDS ORDERED: SERTRALINE 25 MG TAB PO SCH (09:00)
--- NOTE | 2021-11-25 19:54 | P.PN ---
Progress Note - Text Progress Note Date: 11/25/21 Interval History: Patient was seen in the conference room. He presents with polite and cooperative demeanor. He feels like he is having a "great day" and feels more comfortable here, gets along with his peers and was able to take to his love interest on the phone. He reports he was unhappy and upset on admission, and now feels he is doing better except for a bout of anxiety earlier today. Patient denies having any suicidal or homicidal ideation intent or plan. Patient denies any visual hallucinations and denies any auditory hallucinations. Patient denies any side effects from the medications and has been compliant with meds. He is attending groups. Mental Status Exam: General Appearance: Patient is obese, appears stated age. Patient appears to have improving hygiene and grooming. Orientation: He is alert, oriented to person, place, time and situation. Behavior: Patient is seated without any agitated behavior. Appropriate eye contact. Speech: Patient's speech is fluent and with normal volume and tone. Mood/Affect: Patient reports mood is improving but still some anxiety, affect is congruent. Suicidality/Homicidality: Patient denies having any suicidal or homicidal ideation intent or plan. Perceptions: Patient denies any visual hallucinations and denies any auditory hallucinations. Though content/process: There is no evidence of any delusional thought content and thought process is linear and goal-directed. Memory and concentration: Grossly intact for the purposes of this session. Judgment and insight: fair/improving. He plans to take his medication. 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 -Medications: Increase Zoloft to 100 mg daily for depression/anxiety. -When necessary Ativan and Haldol for agitation/aggression. -SW on board for discharge planning. Encouraged the patient to participate in milieu.
[2021-11-25] MEDS: PRAZOSIN 1 MG CAP PO SCH (21:00)
[2021-11-26 07:10] VITALS: BP 94/51; PULSE 85; TEMP 97.2
[2021-11-26] MEDS: PANTOPRAZOLE 40 MG TABLET PO SCH (07:49)
[2021-11-26] MEDS: TERBINAFINE 1% CREAM 15 GM TUBE TOPICAL SCH (07:49)
[2021-11-26] MEDS ORDERED: SERTRALINE 100 MG TAB PO SCH (09:00)
[2021-11-26] MEDS: ACETAMINOPHEN TAB 325 MG TAB PO PRN (15:08)
--- NOTE | 2021-11-26 19:31 | P.PN ---
Progress Note - Text Progress Note Date: 11/26/21 Interval History: Patient was seen in the conference room. He presents with polite and cooperative demeanor. He reports his mood today is "great day" again today, except for the yelling earlier today from other patients caused him some increased anxiety, but reports he was able to get through it by "grounding" himself. Patient denies having any suicidal or homicidal ideation intent or plan. Patient denies any visual hallucinations and denies any auditory hallucinations. Patient denies any side effects from the medications and has been compliant with meds. He is attending groups. Mental Status Exam: General Appearance: Patient is obese, appears stated age. Patient appears to have improving hygiene and grooming. Orientation: He is alert, oriented to person, place, time and situation. Behavior: Patient is seated without any agitated behavior. Appropriate eye contact. Speech: Patient's speech is fluent and with normal volume and tone. Mood/Affect: Patient reports mood is improving but still some anxiety, affect is congruent. Suicidality/Homicidality: Patient denies having any suicidal or homicidal ideation intent or plan. Perceptions: Patient denies any visual hallucinations and denies any auditory hallucinations. Though content/process: There is no evidence of any delusional thought content and thought process is linear and goal-directed. Memory and concentration: Grossly intact for the purposes of this session. Judgment and insight: fair/improving. He plans to take his medication. 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 If he continues to do well, can plan to discharge tomorrow. -Medications: Continue Zoloft 100 mg daily for depression/anxiety. -When necessary Ativan and Haldol for agitation/aggression. -SW on board for discharge planning. Encouraged the patient to participate in milieu.
[2021-11-26] MEDS: PRAZOSIN 1 MG CAP PO SCH (20:20)
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
== END 2021-11-27 14:19 | disposition home or self-care (01) | DRG 885 ==
LOC: EC 17:17 → 3MHU 21:54
PROVIDERS: ADMIT Psychiatry & Neurology Psychiatry; ATTEND Psychiatry & Neurology Psychiatry
DX: F31.9 Bipolar disorder, unspecified (principal); R45.851 Suicidal ideations; Z68.41 Body mass index [BMI] 40.0-44.9, adult; E66.01 Morbid (severe) obesity due to excess calories; B35.3 Tinea pedis; J45.909 Unspecified asthma, uncomplicated; F60.4 Histrionic personality disorder; F60.3 Borderline personality disorder; F60.89 Other specific personality disorders; Z20.822 Contact with and (suspected) exposure to COVID-19; F43.10 Post-traumatic stress disorder, unspecified; G44.209 Tension-type headache, unspecified, not intractable; L73.1 Pseudofolliculitis barbae; Z79.899 Other long term (current) drug therapy; Z91.51 Personal history of suicidal behavior; Z56.0 Unemployment, unspecified; Z62.810 Personal history of physical and sexual abuse in childhood; Z81.8 Family history of other mental and behavioral disorders; Z81.1 Family history of alcohol abuse and dependence
CPT/HCPCS: 36415; 70450; 80053; 80061; 80306; 81003; 82075; 83036; 84443; 85025; 86780; 87635; 99285